=== PATIENT | male | born 1950 | race Asian ===

== ENCOUNTER 2020-02-14 21:39 | Emergency (ER) | payer MEDICARE ==
--- NOTE | 2020-02-14 23:59 | EKG ---
[facility] [address] [facility] [place] [address] Signed Sinus bradycardia with marked sinus arrhythmia Otherwise normal ECG No previous ECGs available Confirmed by YANELIS CARDENAS MD ([id number]) on 02/14/2020 11:59:38 PM Electronically Signed By: YANELIS CARDENAS MD 02/14/20 2359 PATIENT NAME: LEAH RICH Electrocardiogram DATE OF : 54 PHYSICIAN: YANELIS CARDENAS MD REPORT #: [id number] REPORT IS CONFIDENTIAL AND NOT TO BE RELEASED WITHOUT AUTHORIZATION
== END 2020-02-15 06:05 | disposition home or self-care (01) ==
LOC: ED 21:39 → EDBD 21:40 → ED 21:40
DX: S01.81XA Laceration without foreign body of other part of head, initial encounter (principal); F10.129 Alcohol abuse with intoxication, unspecified; Y90.6 Blood alcohol level of 120-199 mg/100 ml; W22.8XXA Striking against or struck by other objects, initial encounter
CPT/HCPCS: 12013; 36415; 70450; 72125; 80053; 82150; 82550; 83605; 83690; 85025; 86850; 86900; 86901; 90471; 90715; 93005; 93010; 99284-25; G0480; J7030